=== PATIENT | female | born 1950 | race Caucasian/White ===

== ENCOUNTER → 2017-04-26 | Outpatient (CLI) | payer MEDICARE, MEDICAID ==
--- NOTE | 2017-04-26 10:39 | RADIOLOGY REPORT (SQ) ---
EXAM DESCRIPTION: CT CHEST WITHOUT COMPLETED DATE/TIME: 04/26/2017 8:14 am REASON FOR STUDY: PULMONARY NODULES/LESIONS, MULTIPLE (R91.8) R91.8 OTHER NONSPECIFIC ABNORMAL FIND ING OF LUNG FIELD COMPARISON: None. TECHNIQUE: CT scan performed of the chest without intravenous contrast. Images reviewed with lung, soft tissue and bone windows. Reconstructed coronal and sagittal MPR images reviewed. All images st ored on PACS. All CT scanners at this facility use dose modulation, iterative reconstruction, and/or weight based d osing when appropriate to reduce radiation dose to as low as reasonably achievable (ALARA). [facility]: Dose Right [facility]: CareDose [facility]: Dose Right [facility]: Teradose 4D [facility]: [place] RADIATION DOSE: CT Rad equipment meets quality standard of care and radiation dose reduction techniq ues were employed. CTDIvol: 9.9 mGy. DLP: 354 mGy-cm. mGy. LIMITATIONS: No technical limitations. FINDINGS: LUNGS AND PLEURA: No masses, infiltrates, pneumothorax. No pleural effusions, calcificati ons. HILAR AND MEDIASTINAL STRUCTURES: Small mediastinal nodes measuring up to about 1 cm in short axis. Calcified left hilar node and subcarinal node. HEART AND VASCULAR STRUCTURES: No aneurysm or pericardial effusion. Dense mitral annular calcificati ons. UPPER ABDOMEN: No significant findings. Limited exam. THYROID AND OTHER SOFT TISSUES: No masses. No adenopathy. BONES: No significant finding. HARDWARE: None in the chest. OTHER: No other significant findings. IMPRESSION: No acute findings in the chest. TECHNICAL DOCUMENTATION: JOB ID: [id number] Quality ID # [id number]: Final reports with documentation of one or more dose reduction techniques (e.g., Au tomated exposure control, adjustment of the mA and/or kV according to patient size, use of iterative reconstruction technique) 2010 [employer]- All Rights Reserved Reading location - IP/workstation name: [email or web address]
== END ==
LOC: RAD 07:55
PROVIDERS: ATTEND Internal Medicine Pulmonary Disease
DX: R91.8 Other nonspecific abnormal finding of lung field (principal)
CPT/HCPCS: 71250

== ENCOUNTER → 2017-05-24 | Outpatient (CLI) | payer MEDICARE, MEDICAID ==
--- NOTE | 2017-05-24 14:35 | RADIOLOGY REPORT (SQ) ---
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 TECHNIQUE: Grayscale ultrasound, Doppler velocity and spectra, and color Doppler images acquired of the extra-cranial carotid and vertebral arteries. Images stored on PACS. LIMITATIONS: None. FINDINGS: RIGHT CAROTID CCA Velocities: Within normal limits. ICA Velocities Peak systolic 1.11 m/s. End diastolic 0.36 m/s. Proximal ICA/CCA peak systolic ratio 1.4. Spectra normal. No significant plaque. LEFT CAROTID CCA Velocities: Within normal limits. ICA Velocities Peak systolic 1.02 m/s. End diastolic 0.28 m/s. Proximal ICA/CCA peak systolic ratio 1.2. Spectra normal. No significant plaque. VERTEBRAL ARTERIES: Antegrade flow. Normal waveforms. SUBCLAVIAN ARTERIES: Not imaged. OTHER: No other significant finding. IMPRESSION: NO HEMODYNAMICALLY SIGNIFICANT STENOSIS. COMMENT: Quality ID #[id number]: Velocity criteria are extrapolated from the diameter data as defined by t he Society of Radiologists in Ultrasound Consensus Conference. Radiology 2003: 229; 340-346. TECHNICAL DOCUMENTATION: JOB ID: [id number] [employer]- All Rights Reserved Reading location - IP/workstation name: [email or web address]
== END ==
LOC: SP 10:10
PROVIDERS: ATTEND Family Medicine
DX: I65.22 Occlusion and stenosis of left carotid artery (principal)
CPT/HCPCS: 93880

== ENCOUNTER 2017-09-27 07:32 | Day surgery (SDC) | payer MEDICARE, MEDICAID ==
[2017-09-16 09:40] LABS: HEMATOCRIT 38.9 % (36.0-47.0); HEMOGLOBIN 12.6 g/dL (12.0-15.5); MEAN CORPUSCULAR HEMOGLOBIN 22.6 pg (27.0-33.4); MEAN CORPUSCULAR HGB CONC 32.4 g/dL (32.0-36.0); MEAN CORPUSCULAR VOLUME 70 fl (80-97); PLATELET COUNT 300 10^3/uL (150-450); RED BLOOD COUNT 5.58 10^6/uL (3.72-5.28); RED CELL DISTRIBUTION WIDTH 15.3 % (11.5-14.0); WHITE BLOOD COUNT 7.9 10^3/uL (4.0-10.5)
[2017-09-16 09:48] LABS: INTERNATIONAL RATION (INR) 0.86; PROTHROMBIN TIME 12.2 SEC (11.4-15.4)
[2017-09-16 09:49] LABS: PARTIAL THROMBOPLASTIN TIME 27.7 SEC (23.5-35.8)
[2017-09-16 10:03] LABS: ANION GAP 18 (5-19); BLOOD UREA NITROGEN 10 mg/dL (7-20); CALCIUM 9.2 mg/dL (8.4-10.2); CARBON DIOXIDE 23 mmol/L (22-30); CHLORIDE 103 mmol/L (98-107); GLUCOSE 84 mg/dL (75-110); POTASSIUM 4.7 mmol/L (3.6-5.0); SODIUM 144.2 mmol/L (137-145)
--- NOTE | 2017-09-16 22:13 | EKG REPORT ---
SEVERITY:- ABNORMAL ECG - SINUS RHYTHM LEFT BUNDLE BRANCH BLOCK : Confirmed by: Aminata Mclaughlin 16-Sep-2017 22:13:27
[~2017-09-27 07:32] MED LIST: ACETAMINOPHEN 1,000 MG/100 ML RTUPB IV ONE; CEFAZOLIN 2 GM/D5W RTU 2 GM/50 ML RTUPB IV PRN; DEXAMETHASONE SOD PHOSPHATE INJ 4 MG/1 ML VIAL ONE; FENTANYL CITRATE INJ/PF 100 MCG/2 ML AMPUL ONE; KETAMINE HCL INJ 500 MG/10 ML VIAL ONE; LACTATED RINGERS 1000 ML IV PRN; LIDOCAINE 0.5% INJ-PF (5 MG/ML) 50 ML SDV SUBCUT PRN; LIDOCAINE 1%/EPINEPHRINE INJ 20 ML VIAL ONE; LIDOCAINE 2% INJ-PF (20 MG/ML) 10 ML AMPUL ONE; MIDAZOLAM 2 MG/2 ML INJ ONE; ONDANSETRON HCL INJ/PF 4 MG/2 ML SDV ONE; PROPOFOL INJ 200 MG/20 ML VIAL IV ONE
[2017-09-27] MEDS ORDERED: CEFAZOLIN 1 GM/D5W RTU 1 GM/50 ML RTUPB IV ONE (07:48)
[2017-09-27] MEDS ORDERED: ALBUTEROL SULFATE 0.083% NEB 2.5 MG/3 ML AMPUL NEB ONE (08:33)
[2017-09-27] MEDS ORDERED: SODIUM BICARBONATE 8.4% INJ 50 MEQ/50 ML DISP.SYRIN ONE (10:01)
[2017-09-27] MEDS ORDERED: GLYCOPYRROLATE 1 MG/5 ML SYRINGE ONE (11:28)
[2017-09-27] MEDS ORDERED: METOCLOPRAMIDE HCL INJ/PF 10 MG/2 ML SDV ONE (11:28)
--- NOTE | 2017-09-27 11:45 | Operative Report ---
Operative Report DATE OF SURGERY: 09/27/17 Operative Report: t PREOPERATIVE DIAGNOSIS: Mass of the right ulnar forearm POSTOPERATIVE DIAGNOSIS: Same. OPERATION: Excision of mass of right ulnar forearm with closure SURGEON: DEXTER XAVIER ANESTHESIA: LMAC TISSUE REMOVED OR ALTERED: Mass of the right ulnar forearm COMPLICATIONS: None ESTIMATED BLOOD LOSS: Minimal PROCEDURE: The patient was brought into the operating room after being marked. The patient was placed in a supine position. The patient was then prepped with a Betadine scrub and Betadine solution. A timeout was performed. The area for resection was outlined. Injection of 1% lidocaine with epinephrine and bicarbonate was performed for its anesthetic and hemostatic effects. An incision was then made through the skin into the subcutaneous tissue. Dissection was performed [id number]-[id number] to encounter the mass. Once the mass was encountered a dissection was performed 360 in order to remove the mass Retraction was used to facilitate exposure. Dissection was performed through the skin and and down into the deeper soft tissue. The dissection was performed in the deep subcutaneous region. Dkmc-lx-[id number] the mass was dissected free of the surrounding tissue. Throughout the case hemostasis was achieved with the bipolar. Once the mass was completely dissected it was then removed. The area was washed with Betadine and sterile water solution. Hemostasis was confirmed. Closure was then performed using 4-0 Vicryl sutures. Because of the size of the mass deeper sutures were placed in order to minimize a deformity. The layers that were dissected were closed [id number] until we reached the deep dermis. 4-0 Vicryl was used for deep dermal sutures. A subcuticular stitch was placed using 4-0 PDS. A central support stitch was placed using 4-0 PDS. The wound was cleaned with Betadine prior to the final closure. Tincture of benzoin and Steri-Strips with a light pressure dressing was applied. Patient was then reversed from anesthesia and taken to the [facility] for recovery. The approximate size of the mass was approximately 3.2 cm in size. This dictation was performed with [employer] naturally speaking. If there are any inconsistencies or errors please contact the physician. Subjective: No complaints Objective: Vital signs stable afebrile No bleeding Dressing intact Assessment and plan: Doing well. Elevate the operative site. Resume medications. Take antibiotics for 1 day Follow-up Full instructions were given to the patient and family and they understand Portions of this note may be dictated using [employer] voice recognition software. Occasional variations and spelling and vocabulary could be possible and are unintentional. Additionally, there is a chance that some errors may not be caught or corrected. Please notify the offer of any discrepancies noted or if any statements are unclear.
--- NOTE | 2017-09-27 11:47 | Discharge Summary ---
Discharge Summary (SDC) - Discharge Final Diagnosis: Mass of right ulnar forearm Date of Surgery: 09/27/17 Condition: Good Treatment or Instructions: Leave the top dressing on for 2 days, then removed. Leave the steri-strip tapes on for 5 days, then removal. Then cleaning wound with peroxide and apply Neosporin/bacitracin 3 times per day. Antibiotics for 1 day, then discontinue. Elevate operative area to decrease swelling. Do not strain, or lift heavy objects. Call for excessive bleeding, increased temperature of 101, uncontrolled pain, or excessive nausea or vomiting. You may reach Dr. Coronado through his office at [phone]. In the event of an emergency after hours, then contact Dr. Coronado through [facility]. Return to the office for a postop check on . The time will be scheduled by the nursing staff of [facility] prior to discharge. Please give the patient a copy of their labs and EKG so they can bring this to their PMD. Thank you Portions of this note may be dictated using [employer] voice recognition software. Occasional variations and spelling and vocabulary could be possible and are unintentional. Additionally, there is a chance that some errors may not be caught or corrected. Please notify the offer of any discrepancies noted or if any statements are unclear. Referrals: STARR HOLMAN MD [Primary Care Provider] - Discharge Diet: As Tolerated Report the Following to Your Physician Immediately: Unusual Bleeding - Keep arm elevated. Monitor capillary refill. Do not lift or straining the arm.
[2017-09-27] MEDS ORDERED: DIPHENHYDRAMINE HCL 50 MG/ML VIAL IV PRN (11:58)
[2017-09-27] MEDS ORDERED: FENTANYL CITRATE INJ/PF 100 MCG/2 ML AMPUL IV PRN ×3 (11:58)
[2017-09-27] MEDS ORDERED: PROMETHAZINE HCL INJ 25 MG/1 ML VIAL IV PRN ×2 (11:58)
[2017-09-27] MEDS ORDERED: MEPERIDINE HCL/PF INJ 25 MG/1 ML DISP.SYRIN IV PRN (11:58)
[2017-09-27 13:21] VITALS: BP 138/74
== END 2017-09-27 13:20 | disposition home or self-care (01) ==
LOC: OROUT 07:32
PROVIDERS: ATTEND Plastic Surgery
DX: D86.3 Sarcoidosis of skin (principal); J45.909 Unspecified asthma, uncomplicated; E11.9 Type 2 diabetes mellitus without complications; D86.0 Sarcoidosis of lung; J43.9 Emphysema, unspecified; I10 Essential (primary) hypertension; Z79.51 Long term (current) use of inhaled steroids; Z79.82 Long term (current) use of aspirin; Z01.818 Encounter for other preprocedural examination; Z79.899 Other long term (current) drug therapy; Z79.84 Long term (current) use of oral hypoglycemic drugs; Z87.891 Personal history of nicotine dependence
CPT/HCPCS: 93005; 36415; 82962; 85027; 85610; 85730; 80048; 88307 ×2; 88312 ×2; 93010; 94640; 25071; J2250; J0690; J3010; J3490 ×5; J2765; J2405; J2704; A9270; J0131; 400; J1100

== ENCOUNTER 2017-11-01 08:19 | Day surgery (SDC) | payer MEDICARE, MEDICAID ==
[~2017-11-01 08:19] MED LIST changes: -ACETAMINOPHEN 1,000 MG/100 ML RTUPB IV ONE; +CEFAZOLIN 1 GM/D5W RTU 1 GM/50 ML RTUPB IV PRN; -CEFAZOLIN 2 GM/D5W RTU 2 GM/50 ML RTUPB IV PRN; -DEXAMETHASONE SOD PHOSPHATE INJ 4 MG/1 ML VIAL ONE; -KETAMINE HCL INJ 500 MG/10 ML VIAL ONE; -LACTATED RINGERS 1000 ML IV PRN; -LIDOCAINE 1%/EPINEPHRINE INJ 20 ML VIAL ONE; -LIDOCAINE 2% INJ-PF (20 MG/ML) 10 ML AMPUL ONE; -ONDANSETRON HCL INJ/PF 4 MG/2 ML SDV ONE
[2017-11-01] MEDS ORDERED: LIDOCAINE 1%/EPINEPHRINE INJ 20 ML VIAL ONE (08:35)
[2017-11-01] MEDS ORDERED: SODIUM BICARBONATE 8.4% INJ 50 MEQ/50 ML DISP.SYRIN ONE (08:35)
[2017-11-01] MEDS ORDERED: ALBUTEROL SULFATE 0.083% NEB 2.5 MG/3 ML AMPUL NEB ONE (09:09)
[2017-11-01] MEDS ORDERED: FAMOTIDINE INJ/PF 20 MG/2 ML SDV IV ONE (09:16)
[2017-11-01] MEDS ORDERED: METOCLOPRAMIDE HCL INJ/PF 10 MG/2 ML SDV ONE (09:18)
[2017-11-01] MEDS ORDERED: MIDAZOLAM 2 MG/2 ML INJ ONE (09:33)
[2017-11-01 10:00] LABS: POTASSIUM 4.3 mmol/L (3.6-5.0)
[2017-11-01] MEDS ORDERED: FENTANYL CITRATE INJ/PF 100 MCG/2 ML AMPUL IV PRN ×3 (11:01)
--- NOTE | 2017-11-01 12:19 | Operative Report ---
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 POSTOPERATIVE DIAGNOSIS: Same OPERATION: Excision of mass from the left ulnar volar forearm. Incision and exploration of right ulnar forearm wound. SURGEON: DEXTER XAVIER ANESTHESIA: LMAC TISSUE REMOVED OR ALTERED: Mass from left ulnar volar forearm COMPLICATIONS: None INTRAOPERATIVE FINDINGS: Minimal bleeding PROCEDURE: The patient was brought into the operating room after being marked. The patient was placed in a supine position. The patient was then prepped with a Betadine scrub and Betadine solution. A timeout was performed. The area for resection was outlined. Injection of 1% lidocaine with epinephrine and bicarbonate was performed for its anesthetic and hemostatic effects. An incision was then made through the skin into the subcutaneous tissue. Dissection was performed bovz-ec-zwwy to encounter the mass. Once the mass was encountered a dissection was performed 360 in order to remove the mass Retraction was used to facilitate exposure. Dissection was performed through the superficial subcutaneous tissue [and down into the deeper soft tissue]. The dissection was performed in the fascial layer and above. Wkvj-ag-evtr the mass was dissected free of the surrounding tissue. Throughout the case hemostasis was achieved with the [bipolar and the Bovie]. Once the mass was completely dissected it was then removed. The area was washed with Betadine and sterile water solution. Hemostasis was confirmed. Closure was then performed using 4-0 Prolene sutures. We used horizontal mattress and simple sutures. The incision was small and a deep dermal layer was not necessary. Within the wound itself there was a void but any sutures that we placed or pin cushioning the skin surface therefore we decided to not place deeper sutures and create a deformity. The wound was cleaned with Betadine prior to the final closure. Tincture of benzoin and Steri-Strips with a light pressure dressing was applied. Patient was then reversed from anesthesia and taken to the [facility] for recovery. The approximate size of the mass was approximately 1-1/2 cm. This dictation was performed with [employer] naturally speaking. If there are any inconsistencies or errors please contact the physician. After we completed the surgery on the left forearm we turned our attention to the right forearm. The patient had surgery on her right forearm approximately 6 weeks ago. 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 At the time of suture removal everything was looking well. The patient said that the area started to swell and become tender. We discussed with the patient that this is probably part of the granulomatous process that could be causing this poor healing. We discussed with the patient whether to observe or to explore the area. Patient opted to explore the area. After prepping her with a Betadine solution and draped her in a sterile and aseptic manner we went ahead and anesthetized the previous incision. A small opening was made and then we explored the wound. There was no purulence. There was no hematoma. The appearance of the tissue was what one would expect at 6 weeks of healing There was some potential space in the area but there was no signs of any abnormalities. We decided to go ahead and just packed the wound with quarter inch iodoform packing. Prior to this we washed the wound with Betadine solution and flushed it and then placed the packing with a light pressure dressing. Patient tolerated this procedure well. Subjective: No complaints Objective: Vital signs stable afebrile No bleeding Dressing intact Assessment and plan: Doing well. Elevate the operative site. Resume medications. Take antibiotics for 1 day Follow-up Full instructions were given to the patient and family and they understand Portions of this note may be dictated using [employer] voice recognition software. Occasional variations and spelling and vocabulary could be possible and are unintentional. Additionally, there is a chance that some errors may not be caught or corrected. Please notify the offer of any discrepancies noted or if any statements are unclear.
--- NOTE | 2017-11-01 12:21 | Discharge Summary ---
Discharge Summary (SDC) - Discharge Final Diagnosis: Suspected granulomatous mass of the left ulnar volar forearm Date of Surgery: 11/01/17 Condition: Good Treatment or Instructions: Leave the top dressing on for 2 days, then removed. Leave the steri-strip tapes on for 5 days, then removal. Then cleaning wound with peroxide and apply Neosporin/bacitracin 3 times per day. Antibiotics for 1 day, then discontinue. Elevate operative area to decrease swelling. Do not strain, or lift heavy objects. Call for excessive bleeding, increased temperature of 101, uncontrolled pain, or excessive nausea or vomiting. You may reach Dr. Coronado through his office at [phone]. In the event of an emergency after hours, then contact Dr. Coronado through [facility]. Return to the office for a postop check on . The time will be scheduled by the nursing staff of [facility] prior to discharge. Please give the patient a copy of their labs and EKG so they can bring this to their PMD. Thank you Portions of this note may be dictated using [employer] voice recognition software. Occasional variations and spelling and vocabulary could be possible and are unintentional. Additionally, there is a chance that some errors may not be caught or corrected. Please notify the offer of any discrepancies noted or if any statements are unclear. Referrals: STARR HOLMAN MD [Primary Care Provider] - Discharge Diet: As Tolerated Report the Following to Your Physician Immediately: Unusual Bleeding - Keep arms elevated If the BLADIMIR gets tight on the right arm than loosen it. Watch for any signs of infection. Monitor capillary refill in the fingers. Follow-up on .
[2017-11-01 14:20] VITALS: BP 133/68
== END 2017-11-01 13:55 | disposition home or self-care (01) ==
LOC: OROUT 08:19
PROVIDERS: ATTEND Plastic Surgery
DX: R22.32 Localized swelling, mass and lump, left upper limb (principal); J45.909 Unspecified asthma, uncomplicated; I10 Essential (primary) hypertension; D86.9 Sarcoidosis, unspecified; E78.5 Hyperlipidemia, unspecified; E11.9 Type 2 diabetes mellitus without complications; J43.9 Emphysema, unspecified; M19.90 Unspecified osteoarthritis, unspecified site; Z79.899 Other long term (current) drug therapy; Z79.51 Long term (current) use of inhaled steroids; Z79.82 Long term (current) use of aspirin; Z79.84 Long term (current) use of oral hypoglycemic drugs
CPT/HCPCS: 36415; 82947; 84132; 88305 ×2; 88312 ×2; 94640; 25075; A6266; J2250; J0690; J3490 ×2; J2765; J2704; S0028; A9270; 400; J3010

== ENCOUNTER 2018-03-28 05:30 | Day surgery (SDC) | payer MEDICARE, MEDICAID ==
[2018-03-15 11:44] LABS: HEMATOCRIT 39.4 % (36.0-47.0); HEMOGLOBIN 12.7 g/dL (12.0-15.5); MEAN CORPUSCULAR HEMOGLOBIN 23.2 pg (27.0-33.4); MEAN CORPUSCULAR HGB CONC 32.3 g/dL (32.0-36.0); MEAN CORPUSCULAR VOLUME 72 fl (80-97); PLATELET COUNT 310 10^3/uL (150-450); RED BLOOD COUNT 5.49 10^6/uL (3.72-5.28); RED CELL DISTRIBUTION WIDTH 14.9 % (11.5-14.0); WHITE BLOOD COUNT 9.6 10^3/uL (4.0-10.5)
[2018-03-15 11:50] LABS: INTERNATIONAL RATION (INR) 0.93; PARTIAL THROMBOPLASTIN TIME 26.4 SEC (23.5-35.8); PROTHROMBIN TIME 12.9 SEC (11.4-15.4)
[2018-03-15 12:09] LABS: ANION GAP 9 (5-19); BLOOD UREA NITROGEN 14 mg/dL (7-20); CARBON DIOXIDE 30 mmol/L (22-30); CHLORIDE 101 mmol/L (98-107); GLUCOSE 145 mg/dL (75-110); POTASSIUM 4.9 mmol/L (3.6-5.0); SODIUM 139.7 mmol/L (137-145)
--- NOTE | 2018-03-15 12:28 | RADIOLOGY REPORT (SQ) ---
EXAM DESCRIPTION: CHEST PA/LATERAL COMPLETED DATE/TIME: 03/15/2018 11:52 am REASON FOR STUDY: PRE-OP COMPARISON: None. TECHNIQUE: Frontal and lateral radiographic views of the chest acquired. NUMBER OF VIEWS: Two view. LIMITATIONS: None. FINDINGS: LUNGS AND PLEURA: Minimal subsegmental atelectasis in the lingula. No acute infiltrate. MEDIASTINUM AND HILAR STRUCTURES: No masses or contour abnormalities. HEART AND VASCULAR STRUCTURES: Heart normal size. No evidence for failure. BONES: No acute findings. HARDWARE: None in the chest. OTHER: No other significant finding. IMPRESSION: NO SIGNIFICANT RADIOGRAPHIC FINDING IN THE CHEST. TECHNICAL DOCUMENTATION: JOB ID: [id number] [employer]- All Rights Reserved Reading location - IP/workstation name: [email or web address]
--- NOTE | 2018-03-15 17:58 | EKG REPORT ---
SEVERITY:- ABNORMAL ECG - SINUS RHYTHM LEFT ATRIAL ABNORMALITY LEFT BUNDLE BRANCH BLOCK : Confirmed by: Aminata Mclaughlin 15-Mar-2018 17:58:26
[~2018-03-28 05:30] MED LIST changes: -FENTANYL CITRATE INJ/PF 100 MCG/2 ML AMPUL ONE; +LACTATED RINGERS 1000 ML IV PRN; -MIDAZOLAM 2 MG/2 ML INJ ONE; -PROPOFOL INJ 200 MG/20 ML VIAL IV ONE
[2018-03-28] MEDS ORDERED: CEFAZOLIN 1 GM/D5W RTU 1 GM/50 ML RTUPB IV ONE (05:31)
[2018-03-28] MEDS ORDERED: MIDAZOLAM 2 MG/2 ML INJ ONE (06:36)
[2018-03-28] MEDS ORDERED: PROPOFOL INJ 200 MG/20 ML VIAL IV ONE ×2 (06:37→09:21)
[2018-03-28] MEDS ORDERED: ALBUTEROL SULFATE 0.083% NEB 2.5 MG/3 ML AMPUL NEB ONE (06:42)
[2018-03-28] MEDS ORDERED: NEO/POLYMYX B SULF/DEXAMETH OPH OINTMENT 3.5 GM ONE (07:05)
[2018-03-28] MEDS ORDERED: BALANCED SALT IRRIG SOLN COMB2 15 ML BOTTLE ONE (07:05)
[2018-03-28] MEDS ORDERED: LIDOCAINE 1%/EPINEPHRINE INJ 20 ML VIAL ONE (07:06)
[2018-03-28] MEDS ORDERED: SODIUM BICARBONATE 8.4% INJ 50 MEQ/50 ML DISP.SYRIN ONE (07:06)
[2018-03-28] MEDS ORDERED: POVIDONE-IODINE 5% OPH PREP SOLN 30 ML ONE (07:06)
[2018-03-28 07:14] LABS: POTASSIUM 4.1 mmol/L (3.6-5.0)
[2018-03-28] MEDS ORDERED: FENTANYL CITRATE INJ/PF 100 MCG/2 ML AMPUL IV PRN ×3 (07:54)
[2018-03-28] MEDS ORDERED: PROMETHAZINE HCL INJ 25 MG/1 ML VIAL IV PRN (07:54)
[2018-03-28] MEDS ORDERED: DIPHENHYDRAMINE HCL 50 MG/ML VIAL IV PRN (07:54)
[2018-03-28] MEDS ORDERED: FENTANYL CITRATE INJ/PF 100 MCG/2 ML AMPUL ONE (08:42)
--- NOTE | 2018-03-28 10:14 | Operative Report ---
Operative Report DATE OF SURGERY: 03/28/18 PREOPERATIVE DIAGNOSIS: Bilateral excess of skin of the upper eyelids obstructi ng vision POSTOPERATIVE DIAGNOSIS: Same OPERATION: Bilateral upper lid blepharoplasty SURGEON: DEXTER XAVIER ANESTHESIA: LMAC TISSUE REMOVED OR ALTERED: Bilateral excess of skin of the upper eyelids COMPLICATIONS: None ESTIMATED BLOOD LOSS: Minimal PROCEDURE: Indications for surgery was that the patient had excess skin of the eyelids that was obstructing her vision. The patient was then seen prior to surgery and final questions were answered. The patient was brought into the operating room. The face and the eyelids were prepped with a Betadine solution and a Betadine ophthalmic solution. The patient was then draped in a sterile and aseptic manner. An outline was made for the amount of skin to be resected. The supratarsal fold was poorly defined and had to be created. Once the lower lines were drawn, the amount of skin to be resected was determined in multiple areas on each lid in order to define the upper line of resection. Once the outline was done on the first side it was then marked on the second side and adjustments were made to try to give as much symmetry as possible. After a timeout was performed the eyelid skin was anesthetized. An incision was then made at the lower outline and then the upper outline and then using a Karnes tip the skin was removed. A strip of orbicularis oculi muscle was also removed. The bipolar was used for hemostasis throughout the case. The nasal and central fat pads were explored. Excess fat was removed via desiccation. There was no bleeding after the fat was removed. The bipolar was used to create a new supratarsal fold. This was started from the nasal side and the bipolar was used along the curvature where the new supratarsal fold would be best placed in order to cause a decrease in give a better aesthetic appearance. The wound was irrigated with a Betadine saline solution. Again hemostasis was confirmed with the bipolar. Interrupted sutures were then placed to realign the skin margins. 6 .0 Prolene was used for the interrupted sutures. Attention was then turned towards the opposite side. The same procedure was then performed on the opposite side. Once the tacking sutures were in place attention was then turned towards the f irst side. A running 6-0 Prolene suture was used to close the skin margins on both sides. The eyes were irrigated with basic saline solution as well as the incision lines. Topical ophthalmic ointment was applied to both eyes and incisions. Throughout the case cool wet dressings were used to minimize bruising. At the end of the case eye pads with saline were placed and a light ice bag was applied. Patient was then reversed from anesthesia and taken to the [facility] for recovery. This dictation was performed using [employer] naturally speaking. If there are any inconsistencies or hours please contact the dictating physician. Subjective: No complaints Objective: Vital signs stable afebrile No bleeding Dressing intact Assessment and plan: Doing well. Elevate the operative site. Resume medications. Take antibiotics for 1 day Follow-up Full instructions were given to the patient and family and they understand Portions of this note may be dictated using [employer] voice recognition software. Occasional variations and spelling and vocabulary could be possible and are unintentional. Additionally, there is a chance that some errors may not be caught or corrected. Please notify the offer of any discrepancies noted or if any statements are unclear.
--- NOTE | 2018-03-28 10:19 | Discharge Summary ---
Discharge Summary (SDC) - Discharge Final Diagnosis: Bilateral excessive skin of the upper eyelids Date of Surgery: 03/28/18 Condition: Good Treatment or Instructions: Keep head elevated. Apply ice packs to the eyes 5-10 minutes every half hour to hour for the next 2 days. Keep on eye pads moist and place ice packs on top of the head. Do not apply ice directly to the eye. Emergency eyes with the BSS solution every 6 hours and then apply the antibiotic ointment. Advised dry out reapply ointment sooner. The ointment is to be applied to the eyes and the incision. Apply ointment before bedtime and upon waking. At any time if the eyes become dry reapply the ointment. Antibiotics for 1 day, then discontinue. Elevate operative area to decrease swelling. Do not strain, or lift heavy objects. Call for excessive bleeding, increased temperature of 101, uncontrolled pain, or excessive nausea or vomiting. You may reach Dr. Coronado through his office at [phone]. In the event of an emergency after hours, then contact Dr. Coronado through [facility]. Return to the office for a postop check on . The time will be scheduled by the nursing staff of [facility] prior to discharge. Please give the patient a copy of their labs and EKG so they can bring this to their PMD. Thank you Portions of this note may be dictated using [employer] voice recognition software. Occasional variations and spelling and vocabulary could be possible and are unintentional. Additionally, there is a chance that some errors may not be caught or corrected. Please notify the offer of any discrepancies noted or if any statements are unclear. Referrals: STARR HOLMAN MD [Primary Care Provider] - Discharge Diet: As Tolerated Discharge Activity: No Lifting/Push/Pulling Report the Following to Your Physician Immediately: Unusual Bleeding - See discharge instructions
[2018-03-28] MEDS ORDERED: HYDROCODONE/ACETAMINOPHEN 5-325 MG TABLET ONE (11:07)
[2018-03-28 12:38] VITALS: BP 155/81
== END 2018-03-28 12:15 | disposition home or self-care (01) ==
LOC: OROUT 05:30
PROVIDERS: ATTEND Plastic Surgery
DX: H02.834 Dermatochalasis of left upper eyelid (principal); H02.831 Dermatochalasis of right upper eyelid; R06.02 Shortness of breath; J43.9 Emphysema, unspecified; D86.9 Sarcoidosis, unspecified; E11.9 Type 2 diabetes mellitus without complications; E78.5 Hyperlipidemia, unspecified; I10 Essential (primary) hypertension; J45.909 Unspecified asthma, uncomplicated; I25.10 Atherosclerotic heart disease of native coronary artery without angina pectoris; Z79.899 Other long term (current) drug therapy; Z79.51 Long term (current) use of inhaled steroids; Z79.82 Long term (current) use of aspirin; Z79.84 Long term (current) use of oral hypoglycemic drugs; Z87.891 Personal history of nicotine dependence
CPT/HCPCS: 93005; 36415 ×2; 82947; 84132; 85027; 85610; 85730; 80048; 71046; 93010; 15823; J2250; J3490 ×5; J0690; J3010; J2704; A9270 ×2; 103

== ENCOUNTER 2018-04-03 09:02 | Emergency (ER) | payer MEDICARE, MEDICAID ==
[2018-04-03] MEDS ORDERED: IPRATROPIUM/ALBUTEROL 0.5-2.5 MG/3 ML AMPUL NEB ONE (09:42)
[2018-04-03] MEDS ORDERED: BENZONATATE 100 MG CAPSULE PO ONE (09:42)
[2018-04-03] MEDS ORDERED: NORMAL SALINE 1000 ML 1,000 ML IV ONE (09:42)
[2018-04-03] MEDS ORDERED: MAGNESIUM SULFATE/D5W 1 GM/100 ML RTUPB IV ONE (09:42)
[2018-04-03] MEDS ORDERED: LIDOCAINE 1% INJ-PF (10 MG/ML) 30 ML SDV NEB ONE (09:42)
[2018-04-03 09:47] LABS: ABSOLUTE BASOPHILS # (AUTO) 0.1 10^3/uL (0.0-0.2); ABSOLUTE EOSINOPHILS # (AUTO) 0.3 10^3/uL (0.0-0.6); ABSOLUTE LYMPHOCYTES (AUTO) 1.8 10^3/uL (0.5-4.7); ABSOLUTE MONOCYTES (AUTO) 0.7 10^3/uL (0.1-1.4); ABSOLUTE NEUT (AUTO) 6.1 10^3/uL (1.7-8.2); BASOPHILS % (AUTO) 0.6 % (0-2); EOSINOPHILS % (AUTO) 3.8 % (0-6); HEMATOCRIT 38.5 % (36.0-47.0); HEMOGLOBIN 12.6 g/dL (12.0-15.5); LYMPHOCYTES % (AUTO) 19.7 % (13-45); MEAN CORPUSCULAR HEMOGLOBIN 23.5 pg (27.0-33.4); MEAN CORPUSCULAR HGB CONC 32.8 g/dL (32.0-36.0); MEAN CORPUSCULAR VOLUME 72 fl (80-97); MONOCYTES % (AUTO) 7.7 % (3-13); PLATELET COUNT 279 10^3/uL (150-450); RED BLOOD COUNT 5.39 10^6/uL (3.72-5.28); RED CELL DISTRIBUTION WIDTH 14.6 % (11.5-14.0); SEGMENTED NEUTROPHILS % (AUTO) 68.2 % (42-78); TOTAL CELLS COUNTED % (AUTO) 100 %; WHITE BLOOD COUNT 8.9 10^3/uL (4.0-10.5)
[2018-04-03 09:58] LABS: INTERNATIONAL RATION (INR) 0.85; PROTHROMBIN TIME 12.1 SEC (11.4-15.4)
[2018-04-03 10:12] LABS: ALANINE AMINOTRANSFERASE 13 U/L (9-52); ALBUMIN 4.7 g/dL (3.5-5.0); ALKALINE PHOSPHATASE 71 U/L (38-126); ANION GAP 12 (5-19); ASPARTATE AMINO TRANSFERASE 20 U/L (14-36); BILIRUBIN,DIRECT 0.3 mg/dL (0.0-0.4); BILIRUBIN,TOTAL 0.5 mg/dL (0.2-1.3); BLOOD UREA NITROGEN 14 mg/dL (7-20); CALCIUM 9.7 mg/dL (8.4-10.2); CARBON DIOXIDE 27 mmol/L (22-30); CHLORIDE 100 mmol/L (98-107); CREATINE KINASE 78 U/L (30-135); GLUCOSE 171 mg/dL (75-110); POTASSIUM 4.4 mmol/L (3.6-5.0); SODIUM 139.1 mmol/L (137-145); TOTAL PROTEIN 7.5 g/dL (6.3-8.2)
[2018-04-03 10:20] LABS: A TYPE INFLUENZA AG NEGATIVE (NEGATIVE); B INFLUENZA AG NEGATIVE (NEGATIVE)
[2018-04-03 10:25] LABS: TROPONIN I < 0.012 ng/mL
--- NOTE | 2018-04-03 11:32 | RADIOLOGY REPORT (SQ) ---
EXAM DESCRIPTION: CHEST SINGLE VIEW COMPLETED DATE/TIME: 04/03/2018 11:18 am REASON FOR STUDY: sob COMPARISON: Chest films 03/15/2018, CT chest 04/26/2017 EXAM PARAMETERS: NUMBER OF VIEWS: One view. TECHNIQUE: Single frontal radiographic view of the chest acquired. RADIATION DOSE: NA LIMITATIONS: None. FINDINGS: LUNGS AND PLEURA: No opacities, masses or pneumothorax. No pleural effusion. MEDIASTINUM AND HILAR STRUCTURES: No masses. Contour normal. HEART AND VASCULAR STRUCTURES: Heart normal in size. Normal vasculature. BONES: No acute findings. HARDWARE: None in the chest. OTHER: No other significant finding. IMPRESSION: NO ACUTE RADIOGRAPHIC FINDING IN THE CHEST. TECHNICAL DOCUMENTATION: JOB ID: [id number] [employer]- All Rights Reserved Reading location - IP/workstation name: [email or web address]
[2018-04-03] MEDS ORDERED: PREDNISONE 20 MG TABLET PO ONE (12:27)
[2018-04-03] MEDS ORDERED: ALBUTEROL SULFATE HFA (90 MCG/PUFF) 8 GM MDI (1 MDI/ER DISP) IH ONE (13:15)
[2018-04-03 13:16] VITALS: BP 161/69
--- NOTE | 2018-04-03 13:16 | ER Document Report ---
ED General - General Chief Complaint: Breathing Difficulty Stated Complaint: COUGH, BLOODY NOSE Time Seen by Provider: 04/03/18 09:19 Primary Care Provider: STARR HOLMAN MD [Primary Care Provider] - Follow up in 3-5 days TRAVEL OUTSIDE OF THE [place] IN LAST 30 DAYS: No - HPI Patient complains to provider of: Difficulty in breathing cough Notes: Patient coming in for difficulty in breathing and cough. Upon my initial evaluation patient has a coughing attack. She is myself to go place and nebulizer orders with lidocaine to help with the patient's coughing. I did return shortly thereafter reevaluate patient states recently had surgery by Dr. Avila having part of her eyelids removed patient states also along with cough having some intermittent nosebleeds. Patient denies any fevers denies any chills denies any nausea vomiting but is resting comfortably upon my evaluation. - Related Data Allergies/Adverse Reactions: No Known Allergies Allergy (Verified 04/03/18 09:03) Past Medical History - Social History Smoking Status: Former Smoker Frequency of alcohol use: None Drug Abuse: None Family History: Reviewed & Not Pertinent Patient has suicidal ideation: No Patient has homicidal ideation: No - Past Medical History Cardiac Medical History: Reports: Hx Hypertension Denies: Hx Coronary Artery Disease, Hx Heart Attack Pulmonary Medical History: Reports: Hx Asthma, Hx Bronchitis, Hx COPD, Hx Pneumonia Neurological Medical History: Denies: Hx Cerebrovascular Accident, Hx Seizures Renal/ Medical History: Denies: Hx Peritoneal Dialysis Musculoskeletal Medical History: Denies Hx Arthritis - Immunizations Hx Diphtheria, Pertussis, Tetanus Vaccination: Yes Hx Pneumococcal Vaccination: 12/29/16 Review of Systems - Review of Systems Constitutional: No symptoms reported EENT: No symptoms reported Cardiovascular: No symptoms reported Respiratory: Cough, Short of breath Gastrointestinal: No symptoms reported Genitourinary: No symptoms reported Female Genitourinary: No symptoms reported Musculoskeletal: No symptoms reported Skin: No symptoms reported Hematologic/Lymphatic: No symptoms reported Neurological/Psychological: No symptoms reported -: Yes All other systems reviewed and negative Physical Exam - Vital signs Vitals: Resp Pulse Ox 19 96 04/03/18 08:59 04/03/18 08:59 Interpretation: Normal - General General appearance: Appears well, Alert - HEENT Head: Normocephalic, Atraumatic Eyes: Normal Pupils: PERRL - Respiratory Respiratory status: No respiratory distress Chest status: Nontender Breath sounds: Normal, Wheezing Chest palpation: Normal - Cardiovascular Rhythm: Regular Heart sounds: Normal auscultation Murmur: No - Abdominal Inspection: Normal Distension: No distension Bowel sounds: Normal Tenderness: Nontender Organomegaly: No organomegaly - Back Back: Normal, Nontender - Extremities General upper extremity: Normal inspection, Nontender, Normal color, Normal ROM, Normal temperature General lower extremity: Normal inspection, Nontender, Normal color, Normal ROM, Normal temperature, Normal weight bearing. No: Sonya's sign - Neurological Neuro grossly intact: Yes Cognition: Normal Orientation: AAOx4 Antonio Coma Scale Eye Opening: Spontaneous Antonio Coma Scale Verbal: Oriented Antonio Coma Scale Motor: Obeys Commands Antonio Coma Scale Total: 15 Speech: Normal Motor strength normal: LUE, RUE, LLE, RLE Sensory: Normal - Psychological Associated symptoms: Normal affect, Normal mood - Skin Skin Temperature: Warm Skin Moisture: Dry Skin Color: Normal Course - Re-evaluation Re-evalutation: 04/03/18 18:02 Patient with improvement of her breathing after breathing treatments. Also improvement of her cough patient seen ambulating without difficulty. Recommend the patient use Tessalon Perles honey along with albuterol to help with shortness of breath and cough. Patient is to follow-up with her primary care physician no signs of any critical pathology on her evaluation - Vital Signs Vital signs: Temp Pulse Resp BP Pulse Ox 98.4 F 105 H 20 161/69 H 95 04/03/18 09:10 04/03/18 09:10 04/03/18 13:01 04/03/18 13:01 04/03/18 13:01 - Laboratory Result Diagrams: 04/03/18 09:20 04/03/18 09:20 Laboratory results interpreted by me: 04/03/18 04/03/18 09:20 09:20 RBC 5.39 H MCV 72 L MCH 23.5 L RDW 14.6 H Glucose 171 H Discharge - Discharge Clinical Impression: Cough, Bronchitis Condition: Good Disposition: HOME, SELF-CARE Instructions: Bronchitis ([facility]) Additional Instructions: Your laboratory evaluation chest x-ray today does not show any signs of infection. Your physical examination is consistent with underlying bronchitis causing her shortness of breath wheezing and cough. Would recommend taking the Tessalon Perles along with honey at home to help out with cough suppression use the inhaler that we gave you here in the ER for any wheezing and shortness of breath please take the steroids as prescribed follow-up with your primary care physician Prescriptions: Benzonatate [Tessalon Perle 100 mg Capsule] 100 mg PO Q8HP PRN #40 cap PRN Reason: Prednisone [Deltasone 20 mg Tablet] 3 tab PO DAILY 3 Days tablet Forms: Return to Work Referrals: STARR HOLMAN MD [Primary Care Provider] - Follow up in 3-5 days
--- NOTE | 2018-04-03 18:23 | EKG REPORT ---
SEVERITY:- ABNORMAL ECG - SINUS TACHYCARDIA LEFT BUNDLE BRANCH BLOCK : Confirmed by: Aminata Mclaughlin 03-Apr-2018 18:22:43
== END 2018-04-03 13:24 | disposition home or self-care (01) ==
LOC: ER 09:02
DX: J44.1 Chronic obstructive pulmonary disease with (acute) exacerbation (principal); J44.0 Chronic obstructive pulmonary disease with (acute) lower respiratory infection; J40 Bronchitis, not specified as acute or chronic; R05 Cough; R04.0 Epistaxis; Z87.891 Personal history of nicotine dependence; I10 Essential (primary) hypertension; J44.9 Chronic obstructive pulmonary disease, unspecified
CPT/HCPCS: 93005; 94640 ×2; 99285; 96361; 96365; 36415; 82553; 82550; 85025; 85610; 80053; 84484; 87804; 71045; 93010; A9270 ×3; J3490 ×2; J3475; J7030; J7512; J7620

== ENCOUNTER → 2018-04-14 | Outpatient (CLI) | payer MEDICARE, MEDICAID ==
--- NOTE | 2018-04-14 13:21 | RADIOLOGY REPORT (SQ) ---
EXAM DESCRIPTION: MRI LT UPPER JOINT WITHOUT COMPLETED DATE/TIME: 04/14/2018 10:52 am REASON FOR STUDY: PAIN IN LEFT SHOULDER (M25.512) M25.512 PAIN IN LEFT SHOULDER COMPARISON: None. TECHNIQUE: LEFT shoulder images acquired and stored on PACS. Multiplanar imaging to include fat sens itive sequences such as T1, water sensitive sequences such as FST2/STIR, cartilage sensitive sequence s such as FSPD/gradient-echo sequences. LIMITATIONS: None. FINDINGS: BONE MARROW AND CORTEX: No marrow signal abnormalities worrisome for occult fracture or ag gressive marrow replacement process. Small subcortical cysts along the posterior left humeral head g reater tuberosity JOINT OR BURSAL EFFUSION: Trace fluid in the subacromial/subdeltoid bursa GLENO-HUMERAL ARTICULATION: Normal articulation. No subluxation. No cystic change. No osteophytes or cartilage loss. ACROMION AND AC JOINT: Type 2 acromion with mild acromioclavicular joint bony spurring and synovial thickening. There is bony spurring along the undersurface of the acromion narrowing the subacromial space best shown on coronal image 11. Trace fluid in the subacromial/subdeltoid bursa ROTATOR CUFF AND INTERVAL: Undersurface tendinopathy is present along the anterior edge supraspinatus , and posterior edge infraspinatus tendon. subscapularis is intact No rotator interval tear. No rotator interval thickening to suggest adhesive capsulitis. LABRUM AND BICEPS LABRAL COMPLEX: Intact. No labral tear. Intra-articular long-head biceps tendon n ormal. Distal biceps in normal location in bicipital groove. REMAINDER OF LABRUM AND IGHL : No gross tear or paralabral cyst formation. Labral evaluation is less than optimal without joint distention. No thickening of IGHL to suggest adhesive capsulitis. PERIARTICULAR AND ADJACENT SOFT TISSUES: No masses or abnormal nodes. OTHER: No other significant finding. IMPRESSION: Supra and infraspinatus tendinopathy, bony spurring along the undersurface of the acromi on TECHNICAL DOCUMENTATION: JOB ID: [id number] [employer]- All Rights Reserved Reading location - IP/workstation name: [email or web address]
== END ==
LOC: RAD 09:49
PROVIDERS: ATTEND Orthopaedic Surgery Sports Medicine
DX: M25.512 Pain in left shoulder (principal)

== ENCOUNTER 2018-09-13 08:49 | Day surgery (SDC) | payer MEDICARE, MEDICAID ==
[~2018-09-13 08:49] MED LIST changes: -CEFAZOLIN 1 GM/D5W RTU 1 GM/50 ML RTUPB IV PRN; +CHONDR SU A NA/HYALUR INTRAOC KIT (SURGICARE) ONE; +DORZOLAMIDE HCL 2%/TIMOLOL MALEAT 0.5% OPH SOLN 10 ML OD PRN; +EPINEPHRINE INJ/PF 1 MG/1 ML AMPULE ONE; +KETOROLAC TROMETHAMINE 0.45% 4 DROP/0.4 ML DROPERETTE OD PRN; -LACTATED RINGERS 1000 ML IV PRN; -LIDOCAINE 0.5% INJ-PF (5 MG/ML) 50 ML SDV SUBCUT PRN; +LIDOCAINE 1% INJ-PF (10 MG/ML) 30 ML SDV ONE; +TOBRAMYCIN SULFATE/DEXAMETH OPH OINTMENT 3.5 GM ONE
[2018-09-13] MEDS: TROPICAMIDE 1% OPH SOLN 3 ML OD PRN ×3 (09:34→10:10)
[2018-09-13] MEDS: CYCLOPENTOLATE 0.2%/PHENYLEPHRINE 1% OPH SOLN 2 ML OD PRN ×3 (09:34→10:10)
[2018-09-13] MEDS: BESIFLOXACIN HCL 0.6% OPH SUSP 5 ML BOTTLE OD PRN ×3 (09:35→10:35)
[2018-09-13] MEDS: TETRACAINE HCL 0.5% OPH SOLN 0.6 ML DROPERETTE OD PRN ×3 (09:36→10:14)
[2018-09-13] MEDS ORDERED: MIDAZOLAM 2 MG/2 ML INJ ONE (10:15)
== END 2018-09-13 11:16 | disposition home or self-care (01) ==
LOC: SC 08:49
PROVIDERS: ATTEND Ophthalmology
DX: H25.12 Age-related nuclear cataract, left eye (principal); J44.9 Chronic obstructive pulmonary disease, unspecified; E11.9 Type 2 diabetes mellitus without complications; I10 Essential (primary) hypertension; E78.00 Pure hypercholesterolemia, unspecified; Z79.899 Other long term (current) drug therapy; Z79.51 Long term (current) use of inhaled steroids; Z79.82 Long term (current) use of aspirin
CPT/HCPCS: 82962; 00142; 66984; V2632; J2250; J3490 ×3; A9270; J0171; 142

== ENCOUNTER 2018-09-27 07:36 | Day surgery (SDC) | payer MEDICARE, MEDICAID ==
[~2018-09-27 07:36] MED LIST changes: -DORZOLAMIDE HCL 2%/TIMOLOL MALEAT 0.5% OPH SOLN 10 ML OD PRN; -KETOROLAC TROMETHAMINE 0.45% 4 DROP/0.4 ML DROPERETTE OD PRN; +KETOROLAC TROMETHAMINE 0.45% 4 DROP/0.4 ML DROPERETTE OS PRN; -TOBRAMYCIN SULFATE/DEXAMETH OPH OINTMENT 3.5 GM ONE
[2018-09-27] MEDS: TETRACAINE HCL 0.5% OPH SOLN 4 ML OS PRN ×3 (07:59→08:30)
[2018-09-27] MEDS: TROPICAMIDE 1% OPH SOLN 3 ML OS PRN ×3 (07:59→08:20)
[2018-09-27] MEDS: BESIFLOXACIN HCL 0.6% OPH SUSP 5 ML BOTTLE OS PRN ×4 (07:59→08:47)
[2018-09-27] MEDS: CYCLOPENTOLATE 0.2%/PHENYLEPHRINE 1% OPH SOLN 2 ML OS PRN ×3 (07:59→08:20)
[2018-09-27] MEDS ORDERED: MIDAZOLAM 2 MG/2 ML INJ ONE (08:13)
[2018-09-27] MEDS ORDERED: FENTANYL CITRATE INJ/PF 100 MCG/2 ML AMPUL ONE (08:14)
[2018-09-27] MEDS: DORZOLAMIDE HCL 2%/TIMOLOL MALEAT 0.5% OPH SOLN 10 ML OS PRN ×2 (08:41→08:47)
[2018-09-27] MEDS: TOBRAMYCIN SULFATE/DEXAMETH OPH OINTMENT 3.5 GM ONE ×2 (08:41→08:47)
== END 2018-09-27 09:25 | disposition home or self-care (01) ==
LOC: SC 07:36
PROVIDERS: ATTEND Ophthalmology
DX: H25.12 Age-related nuclear cataract, left eye (principal); J44.9 Chronic obstructive pulmonary disease, unspecified; E11.9 Type 2 diabetes mellitus without complications; E78.00 Pure hypercholesterolemia, unspecified; Z98.41 Cataract extraction status, right eye; Z79.84 Long term (current) use of oral hypoglycemic drugs; I10 Essential (primary) hypertension; K21.9 Gastro-esophageal reflux disease without esophagitis
CPT/HCPCS: 66984; 82962; 00142; J2250; J3490 ×4; A9270; J0171; J3010; 142; V2632

== ENCOUNTER → 2018-10-31 | Outpatient (CLI) | payer MEDICARE, MEDICAID ==
--- NOTE | 2018-10-31 12:48 | RADIOLOGY REPORT (SQ) ---
EXAM DESCRIPTION: CT CHEST WITHOUT COMPLETED DATE/TIME: 10/31/2018 10:33 am REASON FOR STUDY: EMPHYSEMA (J43.9) J43.9 EMPHYSEMA, UNSPECIFIED COMPARISON: 04/26/2017 TECHNIQUE: CT scan performed of the chest without intravenous contrast. Images reviewed with lung, soft tissue and bone windows. Reconstructed coronal and sagittal MPR images reviewed. All images st ored on PACS. All CT scanners at this facility use dose modulation, iterative reconstruction, and/or weight based d osing when appropriate to reduce radiation dose to as low as reasonably achievable (ALARA). [facility]: Dose Right [facility]: CareDose [facility]: Dose Right [facility]: Teradose 4D [facility]: Smart [employer] RADIATION DOSE: CT Rad equipment meets quality standard of care and radiation dose reduction techniq ues were employed. CTDIvol: 9.3 mGy. DLP: 396 mGy-cm. mGy. LIMITATIONS: No technical limitations. FINDINGS: LUNGS AND PLEURA: No infiltrate, effusion, or mass. No significant centrilobular or swathi eptal emphysematous changes. HILAR AND MEDIASTINAL STRUCTURES: There are few small nonspecific mediastinal nodes. HEART AND VASCULAR STRUCTURES: No aneurysm. No pericardial effusion. Dense mitral annular calcifica tions. UPPER ABDOMEN: No significant findings. Limited exam. THYROID AND OTHER SOFT TISSUES: No masses. No adenopathy. BONES: No significant finding. HARDWARE: None in the chest. OTHER: No other significant findings. IMPRESSION: No acute finding in the chest. Dense mitral annular calcifications. TECHNICAL DOCUMENTATION: JOB ID: [id number] Quality ID # [id number]: Final reports with documentation of one or more dose reduction techniques (e.g., Au tomated exposure control, adjustment of the mA and/or kV according to patient size, use of iterative reconstruction technique) 2010 [employer]- All Rights Reserved Reading location - IP/workstation name: [email or web address]
== END ==
LOC: RAD 09:40
PROVIDERS: ATTEND Registered Nurse
DX: J43.9 Emphysema, unspecified (principal)
CPT/HCPCS: 71250

== ENCOUNTER 2018-11-14 19:18 | Emergency (ER) | payer MEDICARE, MEDICAID ==
--- NOTE | 2018-11-14 19:35 | ER Document Report ---
HPI - HPI Patient complains to provider of: elbow pain Time Seen by Provider: 11/14/18 19:27 Onset: This afternoon Onset/Duration: Sudden Quality of pain: Achy, Other - spasms Severity: Severe Pain Level: 5 Context: This 68-year-old female presents emergency department with complaints of right elbow pain. Patient reports she tripped over her grandson's toy and fell on the rug on her elbow and hit her head. Denies change in LOC. Denies urinary bowel incontinence or retention reports she takes 81 mg baby aspirin a day. No other anticoagulants. No other symptoms such as fever vomiting diarrhea. Patient reports her right elbow is having spasms in it. Patient reports she is taking her hydrocodone which she takes for her to herniated disc is not touching the pain. Associated Symptoms: None Exacerbated by: Movement Relieved by: Denies Similar symptoms previously: No Recently seen / treated by doctor: No Past Medical History - General Information source: Patient - Social History Smoking Status: Unknown if Ever Smoked Cigarette use (# per day): No Frequency of alcohol use: None Drug Abuse: None Lives with: Family Family History: Reviewed & Not Pertinent Patient has suicidal ideation: No Patient has homicidal ideation: No - Medical History Medical History: Other - Sarcoidosis - Past Medical History Cardiac Medical History: Reports: Hx Hypertension - MEDICATED Denies: Hx Coronary Artery Disease, Hx Heart Attack Pulmonary Medical History: Reports: Hx Bronchitis, Hx COPD, Hx Pneumonia Denies: Hx Asthma Neurological Medical History: Reports: Hx Cerebrovascular Accident - YRS,NO RESIDUAL. Denies: Hx Seizures Renal/ Medical History: Denies: Hx Peritoneal Dialysis GI Medical History: Denies: Hx Hepatitis, Hx Hiatal Hernia, Hx Ulcer Musculoskeletal Medical History: Denies Hx Arthritis, Reports Other - chronic back pain herniated disks Infectious Medical History: Denies: Hx Hepatitis Past Surgical History: Reports: Hx Hysterectomy. Denies: Hx Mastectomy, Hx Open Heart Surgery, Hx Pacemaker - Immunizations Hx Diphtheria, Pertussis, Tetanus Vaccination: Yes Hx Pneumococcal Vaccination: 12/29/16 Vertical Provider Document - CONSTITUTIONAL Agree With Documented VS: Yes Exam Limitations: No Limitations General Appearance: WD/WN, Mild Distress - c/o pain, spasms - INFECTION CONTROL TRAVEL OUTSIDE OF THE [place] 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 Patient reports pain with movement. - NEURO Level of Consciousness: Awake, Alert, Appropriate - DERM Integumentary: Warm, Dry Course - Re-evaluation Re-evalutation: 11/14/18 20:15 This 68-year-old female presents with right elbow pain after she fell and landed on her elbow hitting her head on the carpet. Denies change in LOC. She takes 81 mg of aspirin a day. 11/14/18 20:32 +radial head fx, pt updated on fx, minimally displaced radial head fx. Reports she has hydrocodone at home for the pain. Patient reports Dr. Reis is her orthopedic and she will follow-up with him. She was instructed that she will need a cast and a temporary splint and sling will be placed tonight. She was given a copy of her x-ray disc. She verbalized understanding to all instructions. Elbow X-Ray 11/14/18 19:32 IMPRESSION: Right radial head fracture. Head CT 11/14/18 19:32 IMPRESSION: No acute intracranial hemorrhage. - Vital Signs Vital signs: Temp Pulse Resp BP Pulse Ox 97.7 F 92 18 153/65 H 93 11/14/18 19:23 11/14/18 19:23 11/14/18 19:23 11/14/18 19:23 11/14/18 19:23 - Diagnostic Test Radiology reviewed: Image reviewed, Reports reviewed Procedures - Immobilization Right Elbow Pre-Proc Neuro Vasc Exam: Normal Immobilizer type: Long arm posterior, Sling Performed by: ABE - judson Post-Proc Neuro Vasc Exam: Unchanged from pre-exam Alignment checked and good: Yes Discharge - Discharge Clinical Impression: Right elbow pain Fracture of radial head, right, closed Qualifiers: Encounter type: initial encounter Fracture alignment: displaced Qualified Code(s): S52.121A - Displaced fracture of head of right radius, initial encounter for closed fracture Condition: Stable Disposition: HOME, SELF-CARE Instructions: Radial Head Fracture ([facility]), Splint Pending Casting ([facility]) Additional Instructions: *You have been evaluated for radial head fracture *Maintain the splint and sling *Rest/Ice/Elevate *Follow up with Dr. Reis tomorrow, taking the copy of your x-ray disc *Take your pain medication as prescribed *Return to ED for worsening condition, changes, needs Monitor your blood pressure. Your blood pressure was elevated today. This may be because you were anxious, in pain or because you need medication. It is important to follow up with your primary care provider for full evaluation. Forms: Elevated Blood Pressure Referrals: NANCY MONTANEZ FNP-C [Primary Care Provider] - Follow up in 3-5 days LEVON REIS MD [NO LOCAL MD] - Follow up tomorrow
--- NOTE | 2018-11-14 20:17 | RADIOLOGY REPORT (SQ) ---
EXAM DESCRIPTION: CLINICAL HISTORY: 68 years Female, fall right elbow pain, hit head on rug COMPARISON: None. FINDINGS: Large joint effusion. There is a minimally displaced radial head fracture. IMPRESSION: Right radial head fracture.
--- NOTE | 2018-11-14 20:22 | RADIOLOGY REPORT (SQ) ---
EXAM DESCRIPTION: CT HEAD WITHOUT IV CONTRAST COMPLETED DATE/TME: 11/14/2018 19:32 CLINICAL HISTORY: 68 years, Female, fall right elbow pain, hit head on rug This exam was performed according to our departmental dose-optimization program which includes automated exposure control, adjustment of the mA and/or kVp according to patient size and/or use of iterative reconstruction technique where applicable. FINDINGS: No acute intracranial hemorrhage, mass effect or midline shift. No extra-axial fluid collections. Ventricles and subarachnoid spaces are preserved. Victoria-white matter differentiation is preserved. Visualized paranasal sinuses and the mastoid air cells are clear. The skull is intact. IMPRESSION: No acute intracranial hemorrhage.
[2018-11-14] MEDS ORDERED: PHENAZOPYRIDINE HCL 200 MG TABLET PO ONE (20:29)
[2018-11-14] MEDS ORDERED: HYDROCODONE/ACETAMINOPHEN 5-325 MG TABLET PO ONE (20:38)
[2018-11-14 21:30] VITALS: BP 167/61
== END 2018-11-14 21:08 | disposition home or self-care (01) ==
LOC: ER 19:18
DX: S52.121A Displaced fracture of head of right radius, initial encounter for closed fracture (principal); M25.521 Pain in right elbow; R25.2 Cramp and spasm; W01.0XXA Fall on same level from slipping, tripping and stumbling without subsequent striking against object, initial encounter; Z79.82 Long term (current) use of aspirin; G89.29 Other chronic pain; I10 Essential (primary) hypertension; Z79.891 Long term (current) use of opiate analgesic
CPT/HCPCS: 73080; 70450; 29105; A9270; 99284

== ENCOUNTER → 2018-12-19 | Outpatient (CLI) | payer MEDICARE, MEDICAID ==
--- NOTE | 2018-12-20 07:21 | WOMENS IMAGING REPORT ---
EXAM DESCRIPTION: 3D SCREENING MAMMO BILAT COMPLETED DATE/TIME: 12/19/2018 3:39 pm REASON FOR STUDY: Z12.31 SCREENING MAMMO Z12.31 ENCNTR SCREEN MAMMOGRAM FOR MALIGNANT NEOPLASM OF B RE COMPARISON: None. EXAM PARAMETERS: Views: Standard craniocaudal and mediolateral oblique views of each breast recorded using digital acquisition and breast tomosynthesis. Read with the assistance of CAD. .[facility] - [place] [employer] Teacher Version 9.2 LIMITATIONS: None. FINDINGS: No suspicious masses, suspicious calcifications or architectural distortion. No areas of c oncern. IMPRESSION: NEGATIVE MAMMOGRAM. BIRADS 1. BREAST DENSITY: a. The breasts are almost entirely fatty. BIRAD: ASSESSMENT: 1 NEGATIVE RECOMMENDATION: ROUTINE SCREENING Please continue yearly bilateral screening mammography/tomosynthesis in November 2019 COMMENT: The patient has been notified of the results by letter per [place] requirements. Additional no tification policies are in place for contacting patient with suspicious or incomplete findings. Quality ID #225: The [employer] recommends an annual screening mammogram for women aged 40 years or over. This facility utilizes a reminder system to ensure that all patients receive reminder letters, and/or direct phone calls for appointments. This includes reminders for routine scr eening mammograms, diagnostic mammograms, or other Breast Imaging Interventions when appropriate. Th is patient will be placed in the appropriate reminder system. TECHNICAL DOCUMENTATION: FINDING NUMBER: (1) ASSESSMENT: (1) JOB ID: [id number] [employer]- All Rights Reserved Reading location - IP/workstation name: [email or web address]
== END ==
LOC: WI 14:20
PROVIDERS: ATTEND Physician Assistant
DX: Z12.31 Encounter for screening mammogram for malignant neoplasm of breast (principal)
CPT/HCPCS: 77063; 77067

== ENCOUNTER → 2019-04-16 | Outpatient (CLI) | payer MEDICARE, MEDICAID ==
--- NOTE | 2019-04-16 15:17 | WOMENS IMAGING REPORT ---
EXAM DESCRIPTION: BONE DENSITY HIP/SPINE COMPLETED DATE/TIME: 04/16/2019 11:02 am REASON FOR STUDY: Z78.0 BONE DENSITY Z78.0 ASYMPTOMATIC MENOPAUSAL STATE COMPARISON: None. TECHNIQUE: Dual-Energy X-ray Absorptiometry (DEXA) of the AP Spine and Hip. LIMITATIONS: None. FINDINGS: LUMBAR SPINE: The bone mineral density (BMD) measured from L1-L4 in the AP projection correlates with a T-score of -2.5, which is osteoporosis as defined by the World Health Organization. BMD Change vs Baseline: N/A HIP: The bone mineral density (BMD) measured in the left hip correlates with a T-score of -1.5 in the femo ral neck, which is osteopenia as defined by the World Health Organization. BMD Change vs Baseline: N/A 10 year Fracture Risk Assessment: Major Osteoporotic Fracture: Not available. Hip Fracture: Not available. IMPRESSION: 1. LUMBAR SPINE WHO CLASSIFICATION: Osteoporosis 2. HIP WHO CLASSIFICATION: Osteopenia OVERALL ASSESSMENT: WHO CLASSIFICATION: Osteoporosis COMMENT: The World Health Organization defines low BMD as follows: T-score: Normal: Greater than -1.0 Osteopenia: Between -1.0 and -2.5 Osteoporosis: Less than -2.5 without fractures Established osteoporosis: Less than -2.5 with fractures In general, you may wish to consider: Diagnosis Treatment Follow-up DEXA Normal BMD Prevention 2-3 years Osteopenia Prevention/Therapy 1-2 years Osteoporosis Therapy Yearly TECHNICAL DOCUMENTATION: JOB ID: [id number] 2010 [employer]- All Rights Reserved Reading location - IP/workstation name: [email or web address]
== END ==
LOC: WI 10:20
PROVIDERS: ATTEND Physician Assistant
DX: M81.0 Age-related osteoporosis without current pathological fracture (principal); Z78.0 Asymptomatic menopausal state
CPT/HCPCS: 77080

== ENCOUNTER → 2019-11-21 | Outpatient (CLI) | payer MEDICARE, MEDICAID ==
--- NOTE | 2019-11-21 11:00 | RADIOLOGY REPORT (SQ) ---
EXAM DESCRIPTION: CT CHEST WITHOUT IMAGES COMPLETED DATE/TIME: 11/21/2019 10:09 am REASON FOR STUDY: D86.9 SARCOIDOSIS, UNSPECIFIED D86.9 SARCOIDOSIS, UNSPECIFIED COMPARISON: 10/31/2018 TECHNIQUE: CT scan performed of the chest without intravenous contrast. Images reviewed with lung, soft tissue and bone windows. Reconstructed coronal and sagittal MPR images reviewed. All images st ored on PACS. All CT scanners at this facility use dose modulation, iterative reconstruction, and/or weight based d osing when appropriate to reduce radiation dose to as low as reasonably achievable (ALARA). [facility]: Dose Right [facility]: CareDose [facility]: Dose Right [facility]: Teradose 4D [facility]: [place] RADIATION DOSE: CT Rad equipment meets quality standard of care and radiation dose reduction techniq ues were employed. CTDIvol: 12.4 mGy. DLP: 512 mGy-cm. mGy. LIMITATIONS: No technical limitations. FINDINGS: LUNGS AND PLEURA: Stable scarring along the left major fissure. Tiny small nodules in the same region. These are unchanged. The largest measures 3.5 mm. Small subpleural nodules along the right major also unchanged. HILAR AND MEDIASTINAL STRUCTURES: Stable pretracheal lymph node. This measures approximately 11 mm i n greatest diameter. Scattered calcified nodes. HEART AND VASCULAR STRUCTURES: Atherosclerotic change of the thoracic aorta. No aneurysmal dilatatio n. UPPER ABDOMEN: No significant findings. Limited exam. THYROID AND OTHER SOFT TISSUES: No masses. No adenopathy. BONES: No significant finding. HARDWARE: None in the chest. OTHER: No other significant findings. IMPRESSION: Stable nonenhanced CT of the chest. No significant findings. There are scattered calci fied mediastinal and hilar nodes. TECHNICAL DOCUMENTATION: JOB ID: [id number] Quality ID # [id number]: Final reports with documentation of one or more dose reduction techniques (e.g., Au tomated exposure control, adjustment of the mA and/or kV according to patient size, use of iterative reconstruction technique) 2010 [employer]- All Rights Reserved Reading location - IP/workstation name: [email or web address]
== END ==
LOC: RAD 09:48
PROVIDERS: ATTEND Registered Nurse
DX: D86.9 Sarcoidosis, unspecified (principal)
CPT/HCPCS: 71250

== ENCOUNTER 2020-01-20 17:05 | Emergency (ER) | payer MEDICARE, MEDICAID ==
--- NOTE | 2020-01-20 18:33 | ER Document Report ---
ED Medical Screen (RME) - General Chief Complaint: Shortness Of Breath Stated Complaint: FEVER Time Seen by Provider: 01/20/20 18:20 Primary Care Provider: NANCY MONTANEZ FNP-C [Primary Care Provider] - Follow up as needed TRAVEL OUTSIDE OF THE [place] IN LAST 30 DAYS: No - HPI Notes: Patient is 69-year-old female with a history of asthma and COPD who presents with fever that began earlier today. Patient states her daughter came to take her temperature and she had a temp of 101 F. Patient reports shortness of breath and back pain but denies chest pain. She also reports 4 days of painless rectal bleeding that resolved today. She denies abdominal pain, nausea, and vomiting. She denies any sick contacts or Covid exposure risk. - Related Data Allergies/Adverse Reactions: No Known Allergies Allergy (Verified 01/20/20 18:18) Past Medical History - Social History Chew tobacco use (# tins/day): No Frequency of alcohol use: None Drug Abuse: None - Past Medical History Cardiac Medical History: Reports: Hx Hypertension - MEDICATED Denies: Hx Coronary Artery Disease, Hx Heart Attack Pulmonary Medical History: Reports: Hx Bronchitis, Hx COPD, Hx Pneumonia Denies: Hx Asthma Neurological Medical History: Reports: Hx Cerebrovascular Accident - YRS,NO RESIDUAL. Denies: Hx Seizures Renal/ Medical History: Denies: Hx Peritoneal Dialysis GI Medical History: Denies: Hx Hepatitis, Hx Hiatal Hernia, Hx Ulcer Musculoskeltal Medical History: Denies Hx Arthritis Infectious Medical History: Denies: Hx Hepatitis Past Surgical History: Reports: Hx Hysterectomy. Denies: Hx Mastectomy, Hx Open Heart Surgery, Hx Pacemaker - Immunizations Hx Diphtheria, Pertussis, Tetanus Vaccination: Yes Physical Exam - Vital signs Vitals: Temp Pulse Resp BP Pulse Ox 98.0 F 104 H 20 133/85 H 95 01/20/20 17:12 01/20/20 17:12 01/20/20 17:12 01/20/20 17:12 01/20/20 17:12 - Respiratory Respiratory status: Labored Breath sounds: Wheezing Course - Re-evaluation Re-evalutation: I have greeted and performed a rapid initial assessment of this patient. A comprehensive ED assessment and evaluation of the patient, analysis of test results and completion of medical decision making process will be conducted by an additional ED providers. - Vital Signs Vital signs: Temp Pulse Resp BP Pulse Ox 98.0 F 104 H 20 133/85 H 95 01/20/20 17:12 01/20/20 17:12 01/20/20 17:12 01/20/20 17:12 01/20/20 17:12 Doctor's Discharge - Discharge Referrals: NANCY MONTANEZ FNP-C [Primary Care Provider] - Follow up as needed
[2020-01-20 21:04] LABS: ABSOLUTE BASOPHILS # (AUTO) 0.1 10^3/uL (0.0-0.2); ABSOLUTE EOSINOPHILS # (AUTO) 0.2 10^3/uL (0.0-0.6); ABSOLUTE LYMPHOCYTES (AUTO) 2.5 10^3/uL (0.5-4.7); ABSOLUTE MONOCYTES (AUTO) 0.6 10^3/uL (0.1-1.4); ABSOLUTE NEUT (AUTO) 6.3 10^3/uL (1.7-8.2); BASOPHILS % (AUTO) 0.8 % (0-2); EOSINOPHILS % (AUTO) 1.9 % (0-6); HEMATOCRIT 38.1 % (36.0-47.0); HEMOGLOBIN 12.4 g/dL (12.0-15.5); LYMPHOCYTES % (AUTO) 26.3 % (13-45); MEAN CORPUSCULAR HEMOGLOBIN 23.1 pg (27.0-33.4); MEAN CORPUSCULAR HGB CONC 32.4 g/dL (32.0-36.0); MEAN CORPUSCULAR VOLUME 71 fl (80-97); MONOCYTES % (AUTO) 5.8 % (3-13); PLATELET COUNT 291 10^3/uL (150-450); RED BLOOD COUNT 5.34 10^6/uL (3.72-5.28); RED CELL DISTRIBUTION WIDTH 14.6 % (11.5-14.0); SEGMENTED NEUTROPHILS % (AUTO) 65.2 % (42-78); TOTAL CELLS COUNTED % (AUTO) 100 %; WHITE BLOOD COUNT 9.6 10^3/uL (4.0-10.5)
[2020-01-20 21:21] LABS: A TYPE INFLUENZA AG NEGATIVE (NEGATIVE); B INFLUENZA AG NEGATIVE (NEGATIVE)
--- NOTE | 2020-01-20 21:36 | RADIOLOGY REPORT (SQ) ---
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 Comparison: None available Findings: The cardiomediastinal silhouette is normal in size. No pneumothorax is seen. No acute airspace opacities are seen. No discrete pleural effusion is apparent. Atherosclerotic calcifications are seen at the aortic arch. Impression: No acute airspace opacities are seen.
[2020-01-20 21:41] LABS: ALBUMIN 4.3 g/dL (3.5-5.0); ALKALINE PHOSPHATASE 65 U/L (38-126); ANION GAP 9 (5-19); ASPARTATE AMINO TRANSFERASE 32 U/L (14-36); BILIRUBIN,DIRECT 0.2 mg/dL (0.0-0.4); BILIRUBIN,TOTAL 0.5 mg/dL (0.2-1.3); BLOOD UREA NITROGEN 10 mg/dL (7-20); CALCIUM 9.7 mg/dL (8.4-10.2); CARBON DIOXIDE 30 mmol/L (22-30); CHLORIDE 99 mmol/L (98-107); GLUCOSE 109 mg/dL (75-110); POTASSIUM 4.4 mmol/L (3.6-5.0); TOTAL PROTEIN 7.2 g/dL (6.3-8.2)
[2020-01-20] MEDS ORDERED: IPRATROPIUM/ALBUTEROL 0.5-2.5 MG/3 ML AMPUL NEB ONE (22:25)
--- NOTE | 2020-01-20 22:33 | ER Document Report ---
ED General - General Chief Complaint: Shortness Of Breath Stated Complaint: FEVER Time Seen by Provider: 01/20/20 18:20 Primary Care Provider: NANCY MONTANEZ FNP-C [Primary Care Provider] - Follow up as needed Mode of Arrival: Ambulatory Information source: Patient Notes: Patient is a 69-year-old female coming in today with cough and shortness of breath. She has numerous medical comorbidities. Also complaining of lower abdominal pain and rectal bleeding for the past 4 days. She takes aspirin. Is not on any other anticoagulant. Patient also reporting a low-grade fever and malaise. TRAVEL OUTSIDE OF THE [place] IN LAST 30 DAYS: No - Related Data Allergies/Adverse Reactions: No Known Allergies Allergy (Verified 01/20/20 18:18) Past Medical History - Social History Smoking Status: Former Smoker Chew tobacco use (# tins/day): No Frequency of alcohol use: None Drug Abuse: None Family History: Reviewed & Not Pertinent - Past Medical History Cardiac Medical History: Reports: Hx Hypertension - MEDICATED Denies: Hx Coronary Artery Disease, Hx Heart Attack Pulmonary Medical History: Reports: Hx Bronchitis, Hx COPD, Hx Pneumonia Denies: Hx Asthma Neurological Medical History: Reports: Hx Cerebrovascular Accident - YRS,NO RESIDUAL. Denies: Hx Seizures Renal/ Medical History: Denies: Hx Peritoneal Dialysis GI Medical History: Denies: Hx Hepatitis, Hx Hiatal Hernia, Hx Ulcer Musculoskeletal Medical History: Denies Hx Arthritis Infectious Medical History: Denies: Hx Hepatitis Past Surgical History: Reports: Hx Hysterectomy. Denies: Hx Mastectomy, Hx Open Heart Surgery, Hx Pacemaker - Immunizations Hx Diphtheria, Pertussis, Tetanus Vaccination: Yes Hx Pneumococcal Vaccination: 12/29/16 Review of Systems - Review of Systems Notes: Constitutional: +fever, malaise EENT: No eye redness. No eye pain. No ear pain. No sore throat. Cardiovascular: No chest pain. No palpitations. Respiratory: Cough, shortness of breath Gastrointestinal: Abdominal pain and rectal bleeding Genitourinary: Atraumatic. No lesions. No pain. No discharge. Musculoskeletal: Atraumatic. No swelling. No deformities. Skin: No rash or lesions. Lymphatic: No swollen lymph nodes. Neurologic: No headache. No syncope. Psychiatric: No suicidal or homicidal ideation. Physical Exam - Vital signs Vitals: Temp Pulse Resp BP Pulse Ox 98.0 F 104 H 20 133/85 H 95 01/20/20 17:12 01/20/20 17:12 01/20/20 17:12 01/20/20 17:12 01/20/20 17:12 - Notes Notes: General: Well-developed, well-nourished. In no acute distress. Non-toxic appearing. Cardiac: Well-perfused. Regular rate and rhythm. No murmurs, rubs, or gallops. Pulmonary: Diminished breath sounds bilaterally Abdominal: Mild tenderness to palpation of the lower abdomen. No guarding or re bound. Nondistended. HEENT: Head is atraumatic. Conjunctivae not reddened. No tearing. PERRL. EOMI. Orbits atraumatic. No periorbital swelling or erythema. Oropharynx is without erythema, swelling, or exudates. Neck: Supple. No adenopathy. No meningismus. Dermatologic: Warm with good turgor. No rash. Atraumatic. Chest: Atraumatic. No chest wall tenderness to palpation. Musculoskeletal: Moves all extremities well. No range of motion deficits. no muscular or joint tenderness. No paraspinal muscle tenderness. no midline spinal tenderness or step-off. Genitourinary: Examination deferred Neurologic: No gross neurologic deficits. Psychiatric: Normal mood. Course - Re-evaluation Re-evalutation: 01/20/20 22:32 Patient's labs are so far very reassuring. Will go ahead and add some breathing treatments to her work-up. Also get a contrasted abdominal scan to make sure there is nothing acute causing the rectal bleeding. 01/20/20 23:26 Unable to get an IV on the patient. Patient refusing further IV attempts. Patient understands need for IV contrast to evaluate her abdomen. Still refuses. Patient is however amenable to trying to get oral contrast instead. 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 We will treat her symptomatically. Follow-up with GI doctor. Patient is still under investigation for Covid. We will put her on antibiotics and inhaler for this. - Vital Signs Vital signs: Temp Pulse Resp BP Pulse Ox 98.0 F 104 H 20 133/85 H 95 01/20/20 17:12 01/20/20 17:12 01/20/20 17:12 01/20/20 17:12 01/20/20 17:12 - Laboratory Result Diagrams: 01/20/20 20:50 01/20/20 20:50 Laboratory results interpreted by me: 01/20/20 20:50 RBC 5.34 H MCV 71 L MCH 23.1 L RDW 14.6 H Discharge - Discharge Clinical Impression: Person under investigation for COVID-19, Colitis Upper respiratory infection Qualifiers: URI type: unspecified URI Qualified Code(s): J06.9 - Acute upper respiratory infection, unspecified Condition: Good Disposition: HOME, SELF-CARE Instructions: COVID-19 Guidance for Persons Under Investigation, Viral Syndrome ([facility]), Upper Respiratory Illness ([facility]), Colitis, Nonspecific ([facility]) Prescriptions: Albuterol Sulfate [Proair HFA Inhalation Aerosol 8.5 gm MDI] 2 puff IH Q4H PRN #1 mdi PRN Reason: Azithromycin [Zithromax 250 mg Tablet] 250 mg PO ASDIR PRN #6 tablet PRN Reason: Referrals: ISABELLA DAVENPORT MD [ACTIVE STAFF] - Follow up as needed
--- NOTE | 2020-01-21 00:37 | EKG REPORT ---
SEVERITY:- ABNORMAL ECG - SINUS RHYTHM PROBABLE LEFT ATRIAL ABNORMALITY LEFT BUNDLE BRANCH BLOCK : Confirmed by: Inez Willams MD 21-Jan-2020 00:37:25
--- NOTE | 2020-01-21 01:53 | RADIOLOGY REPORT (SQ) ---
EXAM DESCRIPTION: CT ABDOMEN PELVIS WITHOUT IV CONTRAST COMPLETED DATE/TME: 01/21/2020 01:37 CLINICAL HISTORY: 69 years, Female, abdominal pain TECHNIQUE: Contiguous axial CT images of the abdomen and pelvis. Intravenous contrast: Absent. Oral contrast: Present. DLP 703 mGy-cm. This exam was performed according to our departmental dose-optimization program, which includes automated exposure control, adjustment of the mA and/or kV according to patient size and/or use of iterative reconstruction technique. COMPARISON: None. FINDINGS: Lower chest: Partially imaged. Lung bases: Unremarkable. Cardiac apex: Calcifications of the mitral valve Solid abdominal viscera: Limited by lack of intravenous contrast. Liver: Unremarkable. Gallbladder: Unremarkable. Pancreas: Unremarkable. Spleen: Unremarkable. Adrenal glands: Unremarkable. Right kidney: No urolithiasis or hydronephrosis. Left kidney: No urolithiasis or hydronephrosis. Urinary bladder: Unremarkable. Abdominal aorta: Atherosclerotic calcifications Peritoneal: Free fluid: None. Free air: None. Other: Stranding around the root of mesentery with prominent subcentimeter lymph nodes. Bowel: Stomach: Unremarkable. Small bowel: Unremarkable. Appendix: Not uniquely identified Colon: Mild thickening particularly of the sigmoid colon. Rectum: Mild thickening Uterus: Hysterectomy Bones: Unremarkable. 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 Mild thickening of the colon and rectum, likely due to mild colitis.
[2020-01-21] MEDS ORDERED: HYDROCODONE/ACETAMINOPHEN 5-325 MG (6 TAB/ER DISP) PO PRN (02:19)
[2020-01-21 02:39] VITALS: BP 163/77
== END 2020-01-21 02:37 | disposition home or self-care (01) ==
LOC: ER 17:05
DX: J06.9 Acute upper respiratory infection, unspecified (principal); K52.9 Noninfective gastroenteritis and colitis, unspecified; K62.5 Hemorrhage of anus and rectum; J44.9 Chronic obstructive pulmonary disease, unspecified; R10.30 Lower abdominal pain, unspecified; R05 Cough; R06.02 Shortness of breath; R53.81 Other malaise; R50.9 Fever, unspecified; I10 Essential (primary) hypertension; Z87.01 Personal history of pneumonia (recurrent); Z87.891 Personal history of nicotine dependence; Z79.82 Long term (current) use of aspirin; Z20.828 Contact with and (suspected) exposure to other viral communicable diseases
CPT/HCPCS: 93005; 94640; 99285; 36415; 87040; 85025; 82270; 80053; 84484; 87804; 71045; 74176; 93010; U0003; A9270; C9803; 87635

== ENCOUNTER 2020-02-05 08:58 | Day surgery (SDC) | payer MEDICARE, MEDICAID ==
[~2020-02-05 08:58] MED LIST changes: -CHONDR SU A NA/HYALUR INTRAOC KIT (SURGICARE) ONE; -EPINEPHRINE INJ/PF 1 MG/1 ML AMPULE ONE; -KETOROLAC TROMETHAMINE 0.45% 4 DROP/0.4 ML DROPERETTE OS PRN; -LIDOCAINE 1% INJ-PF (10 MG/ML) 30 ML SDV ONE; +PROPOFOL INJ 200 MG/20 ML VIAL IV ONE
--- NOTE | 2020-02-05 11:49 | Operative Report ---
Operative Report DATE OF SURGERY: 02/05/20 Operative Report: The risk, benefits and alternatives of the procedure including the risk of bleeding, perforation requiring surgery have been explained to the patient in detail and informed consent has been obtained. Patient is taken back to the endoscopy suite and placed in left, lateral decubital position. Timeout was called. Propofol medication is administered. Rectal examination is done which did not reveal any masses, tears or fissures. An Olympus videoscope was introduced into the patient's rectum and subsequently insufflated scope was then carefully advanced all the way to the cecum. Cecum was identified by the usual anatomical landmarks of the ileocecal valve as well as the appendiceal office. Photodocumentation is obtained. Scope was then sequentially pulled back via the various segments of the colon including the ascending colon, hepatic flexure, transverse colon, splenic flexure, descending colon and finally in to the rectosigmoid portions of the colon. Retroflexion maneuvers performed. PREOPERATIVE DIAGNOSIS: Rectal bleeding POSTOPERATIVE DIAGNOSIS: Random biopsies right-hand side: Rule out collagenous colitis. Internal hemorrhoids OPERATION: Colonoscopy with biopsy SURGEON: ISABELLA DAVENPORT ANESTHESIA: LMAC TISSUE REMOVED OR ALTERED: As noted above. COMPLICATIONS: None. ESTIMATED BLOOD LOSS: None. INTRAOPERATIVE FINDINGS: As noted above. PROCEDURE: Patient tolerated the procedure well. No immediate postprocedure complications are noted. Patient is discharged in good condition. Discharge date 02/05/2020. Discharge diet: Regular. Discharge activity: Regular. 2 to 3-week follow-up to discuss findings. Patient is instructed call the office or proceed to the emergency room should there be any further problems or questions. Wait on the pathology.
[2020-02-05 12:49] VITALS: BP 135/64
== END 2020-02-05 12:25 | disposition home or self-care (01) ==
LOC: END 08:58
PROVIDERS: ATTEND Internal Medicine Gastroenterology
DX: K64.8 Other hemorrhoids (principal); J44.9 Chronic obstructive pulmonary disease, unspecified; K52.9 Noninfective gastroenteritis and colitis, unspecified; D86.9 Sarcoidosis, unspecified; K21.9 Gastro-esophageal reflux disease without esophagitis; Z87.891 Personal history of nicotine dependence; Z79.899 Other long term (current) drug therapy
CPT/HCPCS: 45380; 88305 ×2; J2704; 811; 82962